=== PATIENT | female | born 1955 | race Caucasian/White ===

== ENCOUNTER 2020-04-15 05:53 | Outpatient (RCR) | payer BC, MEDICARE ==
[~2020-04-15 05:53] MED LIST: GFN600TCR PO; KETO10DR5 OP; LRT10T PO; METO-272 PO; OMEP-10 PO
[2020-04-15] MEDS ORDERED: GUAI600T43 PO (14:27)
[2020-04-15] MEDS ORDERED: METO50TA7 PO (14:27)
[2020-04-15] MEDS ORDERED: CLC600T PO (14:27)
[2020-04-15] MEDS ORDERED: MULT-1136 PO (14:27)
[2020-04-15] MEDS ORDERED: SIMV10TA26 PO (14:27)
[2020-04-15] MEDS ORDERED: ASPI-999 PO (14:27)
[2020-04-15] MEDS ORDERED: CHOL200074 PO (14:27)
[2020-04-15] MEDS ORDERED: OMEP20CA18 PO (14:27)
[2020-04-15] MEDS ORDERED: POTA10CA43 PO (14:27)
[2020-04-15] MEDS ORDERED: LEVO5TAB28 PO (14:27)
[2020-04-15] MEDS ORDERED: FLUT9.9S NS (14:27)
== END 2020-07-14 ==
LOC: PREOP 05:53 → EDSTATUS 10:15
PROVIDERS: ATTEND Surgery
DX: Z01.812 Encounter for preprocedural laboratory examination (principal); Z12.11 Encounter for screening for malignant neoplasm of colon; R19.4 Change in bowel habit